=== PATIENT | male | born 1960 | race Caucasian/White ===

== ENCOUNTER 2024-02-20 13:56 | Emergency (ER) | payer MEDICAID ==
[~2024-02-20] VITALS: Ht 180.3 cm; Wt 95.5 kg
[2024-02-20 14:09] VITALS: TEMP 98.1
[2024-02-20 16:30] VITALS: BP 129/88; PULSE 82; RESP 18
[2024-02-20] MEDS ORDERED: AMOX250C4 PO (16:54)
== END 2024-02-20 17:01 | disposition home or self-care (01) ==
LOC: EMS 13:58
DX: K02.9 Dental caries, unspecified (principal); K08.89 Other specified disorders of teeth and supporting structures
CPT/HCPCS: 99283; Z7502